=== PATIENT | female | born 1980 | race Caucasian/White ===

== ENCOUNTER 2018-01-01 07:34 | Emergency (ER) | payer BC ==
[2018-01-01] MEDS: IBUPROFEN 800 MG TAB PO (08:06)
== END 2018-01-01 08:47 | disposition home or self-care (01) ==
LOC: E/R 07:34
DX: R07.9 Chest pain, unspecified (principal); R40.2142 Coma scale, eyes open, spontaneous, at arrival to emergency department; R40.2252 Coma scale, best verbal response, oriented, at arrival to emergency department; R40.2362 Coma scale, best motor response, obeys commands, at arrival to emergency department
CPT/HCPCS: 71045; 81025; 93005; 99284-25